=== PATIENT | female | born 1955 | race Caucasian/White ===

== ENCOUNTER 2022-04-27 12:54 | Outpatient (CLI) | payer MEDICARE | END 2022-04-27 12:55 | disposition home or self-care (01) | LOC: LABBT 12:54 | PROVIDERS: ATTEND Orthopaedic Surgery | DX: Z01.810 Encounter for preprocedural cardiovascular examination (principal) | CPT/HCPCS: 93005; 93010 ==

== ENCOUNTER 2022-04-29 10:27 | Day surgery (SDC) | payer MEDICARE ==
[2022-04-27 13:43] VITALS: BMI 17.2
[2022-04-29] MEDS ORDERED: Fentanyl 100 MCG/2 ML VIAL ONE (11:13)
[2022-04-29] MEDS ORDERED: Midazolam HCl 2 mg/2 ml Vial ONE (11:13)
[2022-04-29] MEDS ORDERED: Bupivacaine PF 0.5% 30 ML VIAL ONE ×2 (11:13→13:33)
[2022-04-29] MEDS ORDERED: Levofloxacin 500 mg/D5W 100 ml Premix Bag ONE (11:16)
[2022-04-29] MEDS ORDERED: Clindamycin/D5W 900 mg/50 ml Premix Bag ONE (11:16)
[2022-04-29] MEDS ORDERED: fentaNYL PF 100 MCG/2 ML SYRINGE ONE (11:53)
[2022-04-29] MEDS ORDERED: Ketorolac Tromethamine 30 MG/ML VIAL ONE (13:11)
[2022-04-29] MEDS ORDERED: Dexamethasone 20 MG/5 ML VIAL ONE (13:11)
[2022-04-29] MEDS ORDERED: ePHEDrine 50 MG/ML VIAL ONE (13:11)
[2022-04-29] MEDS ORDERED: Ondansetron PF 4 MG/2 ML Vial ONE (13:11)
[2022-04-29] MEDS ORDERED: PROPOFOL 200 MG/20 ML VIAL ONE (13:11)
[2022-04-29] MEDS ORDERED: Lidocaine 1% PF 5 ML VIAL ONE (13:11)
== END 2022-04-29 16:40 | disposition home or self-care (01) ==
LOC: SDC 10:27
PROVIDERS: ATTEND Orthopaedic Surgery
PROC: 0QSD04Z Reposition Right Patella with Internal Fixation Device, Open Approach (ICD-10-PCS; principal; 2022-04-29)
DX: S82.031A Displaced transverse fracture of right patella, initial encounter for closed fracture (principal); I10 Essential (primary) hypertension; Z79.899 Other long term (current) drug therapy; Z88.0 Allergy status to penicillin; Z91.040 Latex allergy status; W19.XXXA Unspecified fall, initial encounter
CPT/HCPCS: 27524; 73560; 82962; C1713; C1769; C1776; 36416; J1100; J1885; J1956; J2250; J2405; J2704; J3010; J3490; S0020

== ENCOUNTER 2022-09-08 10:17 | Outpatient (CLI) | payer MEDICARE | END 2022-09-08 10:18 | disposition home or self-care (01) | LOC: LABBT 10:17 | PROVIDERS: ATTEND Orthopaedic Surgery | DX: Z01.810 Encounter for preprocedural cardiovascular examination (principal); S82.031D Displaced transverse fracture of right patella, subsequent encounter for closed fracture with routine healing | CPT/HCPCS: 93005; 93010 ==